=== PATIENT | female | born 1975 | race Two or more races ===

== ENCOUNTER 2019-01-07 14:51 | Emergency (ER) | payer SELFPAY ==
[~2019-01-07] VITALS: Ht 165.1 cm; Wt 92.0 kg
[2019-01-07 17:06] VITALS: BP 118/76
== END 2019-01-07 18:32 | disposition left against medical advice (07) ==
LOC: ER 14:51
DX: Z53.21 Procedure and treatment not carried out due to patient leaving prior to being seen by health care provider (principal)